=== PATIENT | male | born 1975 | race Caucasian/White ===

== ENCOUNTER 2018-05-02 14:09 | Emergency (ER) | payer OTHER ==
[~2018-05-02] VITALS: Ht 180.3 cm; Wt 97.1 kg
== END 2018-05-02 20:53 | disposition home or self-care (01) ==
LOC: ER 14:09
DX: B34.9 Viral infection, unspecified (principal)

== ENCOUNTER 2018-09-13 15:18 | Emergency (ER) | payer OTHER ==
[~2018-09-13] VITALS: Ht 180.3 cm; Wt 0.9 kg
== END 2018-09-13 18:38 | disposition home or self-care (01) ==
LOC: ER 15:18
DX: M62.830 Muscle spasm of back (principal); M54.2 Cervicalgia

== ENCOUNTER 2020-06-18 22:08 | Emergency (ER) | payer OTHER ==
[~2020-06-18] VITALS: Ht 182.9 cm; Wt 90.7 kg
[2020-06-19] MEDS ORDERED: PEPCID40 MG PO (04:14)
== END 2020-06-19 04:35 | disposition home or self-care (01) ==
LOC: ER 22:08 → CPU-OBS 22:45 → ER 22:45
DX: R07.89 Other chest pain (principal); K21.9 Gastro-esophageal reflux disease without esophagitis; F10.129 Alcohol abuse with intoxication, unspecified
CPT/HCPCS: G0378; G0379; 93005